=== PATIENT | male | born 1985 | race African-American/Black ===

== ENCOUNTER 2017-06-29 00:46 | Emergency (ER) | payer OTHER ==
[~2017-06-29] VITALS: Ht 172.7 cm; Wt 68.0 kg
[~2017-06-29 00:46] MED LIST: BACTRIM DS TAB1 EAC1 ORAL; KEFLEX500 MG ORAL; NORCO 5-325 TA1 EACH ORAL
[2017-06-29 01:05] VITALS: BP 120/79
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
[2017-06-29 02:30] VITALS: BP 115/74
[2017-06-29] MEDS ORDERED: TYLENOL325 MG ORAL (03:05)
[2017-06-29 04:15] VITALS: BP_SYST 108; BP_SYST 115; BP_DIAS 74; BP_DIAS 76
--- NOTE | 2017-06-29 09:01 | Diagnostic Imaging Report ---
Indication: Head pain Technique: Continuous helical CT scanning of the head was performed utilizing automated exposure control without intravenous contrast material. Axial and coronal reconstructions were obtained. Comparison: None available CT dose: Total DLP 1330 mGycm; CTDI vol 70.4 mGy Findings: There is no acute intracranial hemorrhage, mass effect or cortical edema. The ventricles, cisterns and sulci are within normal limits. The posterior fossa and fourth ventricle are unremarkable. Sellar and suprasellar regions are grossly unremarkable. Visualized mastoid air cells and paranasal sinuses are unremarkable. There is mild frontal scalp swelling. There is no skull fracture. Impression: No evidence of acute intracranial hemorrhage, mass effect or cortical edema. MRI may be obtained for more sensitive evaluation as clinically indicated. Mild frontal scalp swelling without skull fracture. The CT scanner at [facility] is accredited by the [employer] and the scans are performed using protocols designed to limit radiation exposure to as low as reasonably achievable to attain images of sufficient resolution adequate for diagnostic evaluation.
== END 2017-06-29 04:15 | disposition home or self-care (01) ==
LOC: EMR 01:30
DX: S01.81XA Laceration without foreign body of other part of head, initial encounter (principal); Y08.89XA Assault by other specified means, initial encounter; Y92.89 Other specified places as the place of occurrence of the external cause; R51 Headache; Z88.0 Allergy status to penicillin
CPT/HCPCS: 12011; 70450; 99284; Z7502

== ENCOUNTER 2019-09-13 00:58 | Emergency (ER) | payer OTHER ==
[~2019-09-13] VITALS: Ht 172.7 cm; Wt 72.6 kg
[~2019-09-13 00:58] MED LIST changes: +TYLENOL325 MG ORAL
--- NOTE | 2019-09-13 01:00 | NUR ---
ER DISCHARGE NOTE: Patient is cleared to be discharged per ERMD, pt is aox4, on room air, with stable vital signs. pt was given dc and prescription instructions, pt was able to verbalize understanding, pt id band removed without complications. pt is able to ambulate with steady gait. pt took all belongings.
[2019-09-13 01:10] VITALS: BP 141/87
--- NOTE | 2019-09-13 01:10 | NUR ---
ED Nurse Note: Recieved pt from home, here with c/o sorethroat x 3 days with pain level increasing and possible earr irritation, pt denies fevers, vomiting, diarrhea or any other pain or discomforts.
[2019-09-13] MEDS ORDERED: ZITHROMAX250 MG ORAL (01:43)
[2019-09-13] MEDS ORDERED: IBUPROFEN600 MG ORAL (01:43)
--- NOTE | 2019-09-13 01:44 | Emergency Room Report ---
History of Present Illness General Chief Complaint: Sore Throat Source: Patient Present Illness [facility] This is a 34-year-old male with no past medical history. He presents with complaint of sore throat and ear pain. Onset this morning. He woke up with a fever and chills. Said his throat is painful and red. Worse with swallowing. Pain is 8 out of 10. Also with left ear pain. No nausea no vomiting. No cough or congestion. Nothing made it better. Swelling made it worse. That he has a bump on his groin area. He thought he may have an ingrown hair. This been ongoing for last 3 days. 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 No drainage. No fever. Allergies: Coded Allergies: AMPICILLIN (Unverified Allergy, Unknown, 09/19/14) PENICILLINS (Unverified Allergy, Unknown, 09/19/14) Patient History Past Medical History: see triage record, old chart reviewed Past Surgical History: none Pertinent Family History: none Social History: Denies: smoking Immunizations: other Reviewed Nursing Documentation: PMH: Agreed; PSxH: Agreed Nursing Documentation-PMH Hx Asthma: Yes Review of Systems Constitutional: Reports: fever Eye: Denies: eye pain, blurred vision ENT: Reports: ear pain, throat pain; Denies: nose congestion, throat swelling Respiratory: Denies: cough, shortness of breath Cardiovascular: Denies: chest pain, palpitations Gastrointestinal: Denies: abdominal pain, diarrhea, nausea, vomiting Musculoskeletal: Denies: back pain, joint pain Skin: Denies: rash Neurological: Denies: headache, numbness Endocrine: Denies: increased thirst, increased urine Hematologic/Lymphatic: Denies: easy bruising All Other Systems: negative except mentioned in HPI Physical Exam Vital Signs Date Time Temp Pulse Resp B/P (MAP) Pulse Ox O2 Delivery O2 Flow Rate FiO2 09/13/19 01:01 99.0 72 16 141/87 (105) 96 Room Air Vitals unremarkable Sp02 EP Interpretation: reviewed, normal General Appearance: well appearing, no apparent distress, alert Head: normocephalic, atraumatic Eyes: bilateral eye PERRL, bilateral eye EOMI ENT: hearing grossly normal, tonsillar swelling, pharyngeal erythema Neck: full range of motion, supple, no meningismus, other - Cervical adenopathy Respiratory: chest non-tender, lungs clear, normal breath sounds Cardiovascular #1: regular rate, rhythm, no murmur Gastrointestinal: normal bowel sounds, non tender, no mass, no organomegaly, no bruit, non-distended Genitourinary: other - He has a small ulceration to the perineum. There is no drainage or any ingrown hair anymore. Musculoskeletal: back normal, gait/station normal, normal range of motion Psychiatric: mood/affect normal Medical Decision Making Diagnostic Impression: Primary Impression: Pharyngitis, acute Qualified Codes: J02.9 - Acute pharyngitis, unspecified ER Course This patient presents with acute pharyngitis. Most likely strep. No evidence of peritonsillar abscess, retropharyngeal abscess or Gerhard angina. He has no evidence of any abscess in the groin area. Will discharge home. Last Vital Signs Date Time Temp Pulse Resp B/P (MAP) Pulse Ox O2 Delivery O2 Flow Rate FiO2 09/13/19 01:01 99.0 72 16 141/87 (105) 96 Room Air Status: improved Disposition: HOME, SELF-CARE Condition: Stable Scripts Azithromycin* (ZITHROMAX*) 250 Mg Tablet 250 MG ORAL DAILY, #4 TAB Prov: Jorge Fatima MD 09/13/19 Ibuprofen* (MOTRIN*) 600 Mg Tablet 600 MG ORAL THREE TIMES A DAY, #30 TAB 0 Refills Prov: Jorge Fatima MD 09/13/19 Referrals: [facility] ([facility]P) Jorge Fatima MD Sep 13, 2019 01:43
[2019-09-13] MEDS ORDERED: Azithromycin 250mg tab ORAL ONE (01:45)
== END 2019-09-13 01:58 | disposition home or self-care (01) ==
LOC: EMR 01:25
DX: J02.9 Acute pharyngitis, unspecified (principal); J45.909 Unspecified asthma, uncomplicated; Z88.1 Allergy status to other antibiotic agents; Z88.0 Allergy status to penicillin
CPT/HCPCS: Q0144; Z7502; 99282

== ENCOUNTER 2020-08-16 02:02 | Emergency (ER) | payer OTHER ==
[~2020-08-16] VITALS: Ht 172.7 cm; Wt 68.0 kg
[~2020-08-16 02:02] MED LIST changes: +IBUPROFEN600 MG ORAL; +ZITHROMAX250 MG ORAL
[2020-08-16 02:19] VITALS: BP 107/63
[2020-08-16] MEDS ORDERED: IBUPROFEN600 M1 ORAL (02:19)
[2020-08-16] MEDS ORDERED: ROBAXIN-500MG ORAL (02:19)
[2020-08-16] MEDS ORDERED: HYDROCODON-ACE1 EA15 ORAL (02:19)
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
--- NOTE | 2020-08-16 03:05 | NUR ---
ED Nurse Note: Pt returned from imaging, ambulating, steady gait, no change in pain level, will continue to monitor while waiting for results.
[2020-08-16 03:40] VITALS: BP 107/63
--- NOTE | 2020-08-16 15:32 | Diagnostic Imaging Report ---
Indications: Neck pain Technique: Four views of the cervical spine Comparison: None Findings: No prevertebral soft tissue swelling. Vertebral body heights are preserved. The disc spaces are preserved. No acute fractures. No dislocations. Neural foramina are preserved. Impression: Negative
== END 2020-08-16 03:40 | disposition home or self-care (01) ==
LOC: EMR 02:18
DX: S16.1XXA Strain of muscle, fascia and tendon at neck level, initial encounter (principal); M54.9 Dorsalgia, unspecified; Z88.0 Allergy status to penicillin; V43.52XA Car driver injured in collision with other type car in traffic accident, initial encounter; Y92.410 Unspecified street and highway as the place of occurrence of the external cause; M25.519 Pain in unspecified shoulder
CPT/HCPCS: 72052; Z7502; 99283

== ENCOUNTER 2020-09-20 01:56 | Emergency (ER) | payer OTHER ==
[~2020-09-20] VITALS: Ht 172.7 cm; Wt 70.3 kg
[~2020-09-20 01:56] MED LIST changes: +HYDROCODON-ACE1 EA15 ORAL; +IBUPROFEN600 M1 ORAL; +ROBAXIN-500MG ORAL
[2020-09-20 02:24] VITALS: BP 126/69
--- NOTE | 2020-09-20 02:31 | Emergency Room Report ---
History of Present Illness General Chief Complaint: Pain Source: Patient Present Illness HPI Is a 35-year-old male with no past medical history. He presents with chief complaint of left foot/heel pain. No trauma. Onset yesterday. Worse with walking. Better with rest. He said he walks a lot. Pain is 8 out of 10. No radiation. No fever or chills. 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 Patient History Past Medical History: none, see triage record, old chart reviewed Past Surgical History: none Pertinent Family History: none Social History: Denies: smoking Immunizations: UTD Reviewed Nursing Documentation: PMH: Agreed; PSxH: Agreed Nursing Documentation-PMH Past Medical History: No History, Except For Hx Asthma: Yes Review of Systems Eye: Denies: eye pain, blurred vision ENT: Denies: ear pain, nose congestion, throat swelling Respiratory: Denies: cough, shortness of breath Cardiovascular: Denies: chest pain, palpitations Gastrointestinal: Denies: abdominal pain, diarrhea, nausea, vomiting Musculoskeletal: Reports: joint pain; Denies: back pain Skin: Denies: rash Neurological: Denies: headache, numbness Endocrine: Denies: increased thirst, increased urine Hematologic/Lymphatic: Denies: easy bruising All Other Systems: negative except mentioned in HPI Physical Exam Vital Signs Date Time Temp Pulse Resp B/P (MAP) Pulse Ox O2 Delivery O2 Flow Rate FiO2 09/20/20 02:07 98.4 65 18 126/69 (88) 98 Room Air Vitals normal Sp02 EP Interpretation: reviewed, normal General Appearance: well appearing, no apparent distress, alert Head: normocephalic, atraumatic Eyes: bilateral eye PERRL, bilateral eye EOMI ENT: hearing grossly normal, normal pharynx Neck: full range of motion, supple, no meningismus Respiratory: chest non-tender, lungs clear, normal breath sounds Cardiovascular #1: regular rate, rhythm, no murmur Gastrointestinal: normal bowel sounds, non tender, no mass, no organomegaly, no bruit, non-distended Musculoskeletal: back normal, normal range of motion, gait/station normal, other - Left foot: He has tenderness to the heel bone on the sole of the foot. Full range of motion of the ankle. Pulse normal. Psychiatric: mood/affect normal Medical Decision Making Diagnostic Impression: Primary Impression: Heel pain Qualified Codes: M79.672 - Pain in left foot ER Course This patient presents with the left calcaneus pain. Could be plantar fasciitis. No evidence of septic joint or infection. Will discharge home. Other X-Ray Diagnostic Results Other X-Ray Diagnostic Results : X-Ray ordered: Left foot x-rays # of Views/Limited Vs Complete: 3 View Indication: Pain EP Interpretation: Yes Interpretation: no dislocation, no soft tissue swelling, no fractures Impression: No acute disease Electronically Signed by: Jorge Fatima MD Last Vital Signs Date Time Temp Pulse Resp B/P (MAP) Pulse Ox O2 Delivery O2 Flow Rate FiO2 09/20/20 02:24 98.4 18 126/69 98 Room Air 09/20/20 02:07 65 Status: improved Disposition: HOME, SELF-CARE Condition: Stable Scripts Ibuprofen* (MOTRIN*) 600 Mg Tablet 600 MG ORAL Q6H PRN for For Pain, #30 TAB 0 Refills Prov: Jorge Fatima MD 09/20/20 Additional Instructions: Elevate foot. Use crutches as needed. Follow-up with your doctor at [place] in 7 days. Return if worse. Jorge Fatima MD Sep 20, 2020 02:31
[2020-09-20] MEDS ORDERED: IBUPROFEN600 M1 ORAL (02:40)
[2020-09-20 02:50] VITALS: BP 126/69
--- NOTE | 2020-09-20 15:29 | Diagnostic Imaging Report ---
Indication: Left foot pain for one day Technique: 3 views left foot Comparison: none Findings: No acute fractures. No dislocations. The joint spaces are preserved. Impression: Negative
== END 2020-09-20 02:50 | disposition home or self-care (01) ==
LOC: EMR 02:32
DX: M79.672 Pain in left foot (principal); J45.909 Unspecified asthma, uncomplicated; Z88.0 Allergy status to penicillin
CPT/HCPCS: 73630; Z7502; 99283

== ENCOUNTER 2020-12-17 15:08 | Emergency (ER) | payer OTHER ==
[~2020-12-17] VITALS: Ht 172.7 cm; Wt 68.0 kg
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
[2020-12-17 15:20] VITALS: BP 127/67
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
--- NOTE | 2020-12-17 17:08 | Diagnostic Imaging Report ---
CT FACIAL Without Contrast HISTORY: Pain TECHNIQUE: One or more of the following dose reduction techniques were used: automated exposure control, adjustment of the mA and/or kV according to patient size, use of iterative reconstruction technique. One or more of the following dose reduction techniques were used: automated exposure control, adjustment of the mA and/or kV according to patient size, use of iterative reconstruction technique. Total Exam volume computed tomography dose index (CTDIvol) = 15.3 mGy and Dose Length Product (DLP) = 261.4 mGY-c TECHNIQUE: Multiple, contiguous 2.5 mm axial cuts of the paranasal sinuses are obtained. Sagittal and coronal reformatted images are provided. No IV contrast is administered. COMPARISON: None FINDINGS: Nondisplaced fractures of the superior proximal nasal bones. The maxillary, ethmoid, sphenoid and frontal sinuses are clear bilaterally. There is no mucoperiosteal thickening or air-fluid levels. The osteomeatal units are well aerated bilaterally. The turbinates are normal. The nasal septum is midline. No bony erosions are seen. IMPRESSION: Nondisplaced fractures of the superior proximal nasal bones with overlying swelling.
[2020-12-17] MEDS ORDERED: HYDROCODON-ACE1 EA15 ORAL (17:23)
[2020-12-17 17:31] VITALS: BP 132/62
== END 2020-12-17 17:30 | disposition home or self-care (01) ==
LOC: EMR 15:24
DX: S02.2XXA Fracture of nasal bones, initial encounter for closed fracture (principal); J45.909 Unspecified asthma, uncomplicated; Y04.2XXA Assault by strike against or bumped into by another person, initial encounter; Y93.9 Activity, unspecified; Y92.9 Unspecified place or not applicable; Z88.1 Allergy status to other antibiotic agents; Z88.0 Allergy status to penicillin; Z79.899 Other long term (current) drug therapy
CPT/HCPCS: 70486; Z7502; 99284